=== PATIENT | male | born 1970 | race Caucasian/White ===

== ENCOUNTER 2018-07-02 15:46 | Outpatient (CLI) | payer BC, SELFPAY ==
--- NOTE | 2018-07-02 16:01 | DI.RAD_ITS ---
SYMPTOM/DIAGNOSIS: F/U KIDNEY STONES Z87.4 KUB: Comparison is made with 11/06/15. The kidneys are mainly obscured by overlying bowel gas and stool. There is a question of a small stone near the lower pole of the left kidney. Phleboliths are seen in the pelvis. No organomegaly is seen. IMPRESSION: Limited due to overlying stool and bowel gas. There is a question of a tiny stone of the left kidney.
== END 2018-07-02 16:06 ==
PROVIDERS: PCP Emergency Medicine; Visit Provider Nurse Practitioner Gerontology
DX: N20.0 Calculus of kidney (principal); Z87.442 Personal history of urinary calculi
CPT/HCPCS: 74018

== ENCOUNTER 2018-11-05 06:20 | Day surgery (SDC) | payer BC, SELFPAY ==
[2018-11-05 06:28] VITALS: BP 134/82; PULSE 68; RESP 16; TEMP 36; O2SAT 93
--- NOTE | 2018-11-05 06:30 | W.PM.HP.N ---
Date of service: 11/05/18 Time of Service: 06:30 Assessment and Plan (1) Family history of colon cancer: Current visit: No Status: Chronic (2) Encounter for screening colonoscopy: Current visit: Yes Status: Acute P\\ Colonoscopy under sedation Risks, benefits and complications have been reviewed. Complications include but are not limited to bleeding, pain, perforation, missed small lesion/polyp, sore throat, aspiration and adverse reaction to the medications. Questions were entertained and answered to their satisfaction and they wished to proceed. No guarantees were given or implied. History of Present Illness Chief Complaint: colon cancer screening and family history Narrative: 48 y/o male presents for colonoscopy screening pre-op. His last screening was in 2012, which was remarkable for single small polyp. He reports a family history of colon cancer in his paternal grandmother. He denies any changes in bowel habits including bloody or black tarry stools, abdominal pain, diarrhea or constipation. He denies constitutional symptoms. He reports use of marijuana once a week. Denies use of other recreational or illegal drugs. He denies chest pain, palpitations, dyspnea or dyspnea with exertion. He exercises regularly; skiing and mountain biking. He denies prior history or family history of adverse reactions or complications with anesthesia. 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 His last seizure was over 20 years ago. He had a respiratory infection in September and has gotten over that now. No cough or fevers. No SOB Review of Systems Constitutional Denies fever(s) Cardiovascular Denies dyspnea Respiratory Denies cough, Denies dyspnea and Denies wheezing Allergic/Immunologic Denies wheezing [facility] Medical History Family history of colon cancer (Chronic) Smoker (Acute) Polyp of colon (Acute 04/23/13) Family history of GI malignancy (Acute) Calcium oxalate stone in urine (Acute 12/11/15) Ureteral stone (Acute) Surgical History Cystoscopy Stent placement Tonsillectomy and adenoidectomy Social History Smoking and Tabacco status: Former Tobacco Use alcohol intake: current alcohol intake frequency: a few times a week Alcohol type: beer substance use type: marijuana Meds Home Medications Medication Instructions Recorded Confirmed Type azithromycin 250 mg tablet See Rx Instructions PO .COMPLEX #6 09/28/18 11/05/18 Rx tab Allergies Allergy/AdvReac Type Severity Reaction Status Date / Time No Known Allergies Allergy Verified 11/05/18 06:27 Exam Resp Effort & Inspection: normal respiratory effort Auscultation: clear to auscultation bilaterally Cardio Rate: regular rate Rhythm: regular rhythm Heart Sounds: no gallops, no murmurs and no rubs
--- NOTE | 2018-11-05 06:33 | W.COLOREPORT ---
Date of service: 11/05/18 Time of Service: 07:43 Colonoscopy Report Date of procedure: 11/05/18 Pre-op diagnosis general: Family history and screening Post-op diagnosis procedure note: other (family history and polyps) Procedure: Colonoscopy with polypectomy by cold forceps Surgeon: Hannah Cisneros Anesthesia proc note operative: MAC ([place], NELIDA/ ASA 2) Estimated blood loss (mL): 3 Pathology: other (terminal ileum polyp, cecal polyp and transverse colon polyp) Complications: None Disposition: same day Indications: Mr. Parr is a pleasant 48 year old male who was seen in the office for a screening colonoscopy. He also has a family history of colon cancer. Risks, benefits and complications have been reviewed. Complications include but are not limited to bleeding, pain, perforation, missed small lesion/polyp, sore throat, aspiration and adverse reaction to the medications. Questions were entertained and answered to their satisfaction and they wished to proceed. No guarantees were given or implied. Prep: Miralax/Dulcolax Procedure Start Time: :43 Procedure End Time: 08:09 Retraction Time: 21 minutes Findings: small polyps one small diverticulum in the ascending colon Procedure Description: After informed consent was obtained the patient was taken to the procedure room and placed in a left decubitous position. Monitors were applied and a time out was done. The patients name, date of , procedure, allergies to medications and metal in their body was reviewed. The patient was then sedated. Once sedated and comfortable a rectal exam was done. External exam was normal. Internal exam revealed a normal sphincter tone and no palpable masses. The prostate felt smooth. The scope was then introduced and retro-flexed. No internal hemorrhoids were identified. The scope was then advanced to the cecum without difficulty. The TI and appendiceal orifice were identified. The prep was adequate. The scope was then slowly retracted over 21 minutes back into the rectum. Polyps were removed in the terminal ileum, cecum and transverse colon with cold forceps. One solitary small diverticulum was noted in the ascending colon. The scope was removed and the patient was woken up and taken back to Same day surgery in stable condition. The patient tolerated the procedure well and there were no immediate complications. Follow up: The patient should follow up in 5 years unless they develop changes in bowel habits or other new gastrointestinal complaints.
--- NOTE | 2018-11-05 06:37 | W.PM.DSUDISC ---
Discharge Plan Disposition Patient Disposition: HOME Condition: Good Discharge Details Reason For Visit: Family history/Screening colonoscopy Attending Provider: Hannah Cisneros Primary Care Provider: Tommy Rodriguez Home Meds and New Rx's Prescriptions: Continued azithromycin [Zithromax Z-Chris] 250 mg tablet See Rx Instructions PO .COMPLEX Qty: 6 RF: 0 Discharge Instructions Instructions: Colonoscopy (DC), Colorectal Polyps (DC) Additional Instructions: Findings: 3 small polyps Follow up: 5 years Please call if you develop: fevers >101.5 Nausea or Vomiting Abdominal pain that is not transient DAY SURGERY UNIT POST COLONOSCOPY INSTRUCTIONS 1. Because there will be medication in your system for the next 24 hours, you may feel a little sleepy. Your coordination will be affected. Therefore: a. Do not drive or operate dangerous equipment for 24 hours. b. Do not drink alcohol beverages for 24 hours (not even beer). c. Plan to go home and rest for the day. 2. Generally there are no restrictions on your activity after a day or so has gone by, but you may feel a bit fatigued for a few days. 3 After you arrive home you may have a light meal and return to a normal diet as you can tolerate it without feeling sick to your stomach. 4. After surgery, you may feel pain or discomfort. This should be only transient, but if it persists please contact your doctor. 5. If there are any questions regarding the findings of your procedure, please feel free to contact your doctor. 6. If you are unable to contact your doctor with a problem, contact the hospital at [phone]. 7. Continue all your regular medications unless directed otherwise. I understand the above instructions and have no questions. Signature of Patient or Responsible Adult Escort Date/Time Name of Responsible Adult Escort Signature of Nurse Date/Time Activity:: Activity as Tolerated Diet:: As Tolerated Discharge Orders Discharge Orders: Discharge Order (Routine); Ordered 11/05/18 Ordered By: Hannah Cisneros DS: Diagnosis Discharge Diagnosis (1) Family history of colon cancer: Status: Chronic (2) Encounter for screening colonoscopy: Status: Acute
[2018-11-05] MEDS: Lactated Ringers 1,000 ML 80 ML IV (07:01)
--- NOTE | 2018-11-05 07:49 | BOWEL_PTH ---
PATIENT: Freddy Parr LOC: [facility] U#:[id number] AGE/SX: 48/M ROOM: RE11/05/[address]: Hannah Cisneros MD : 1970 BED: DIS: 11/05/2018 SPEC #: [id number] RECD: 11/05/18 12:42 STATUS: BRENDA RE #: [id number] ISHA: 11/05/18 07:[address]: Hannah Cisneros DEPT: Surgical Specimen RECD BY: Yanna Adkins ENTERED: 11/05/18 12:43 SP TYPE: Bowel OTHR DR: Tommy Rodriguez DO Tissues: 1 - BIOPSY BOWEL 2 - BIOPSY BOWEL 3 - BIOPSY BOWEL Procedures: GROSS AND MICRO LEVEL 4 Comments: [id number]
[2018-11-05 08:39] VITALS: BP 114/66; PULSE 64; RESP 16; TEMP 36.1; O2SAT 92
== END 2018-11-05 08:57 | disposition home or self-care (01) ==
PROVIDERS: PCP Emergency Medicine; Visit Provider Surgery
PROC: 0DJD8ZZ Inspection of Lower Intestinal Tract, Via Natural or Artificial Opening Endoscopic (ICD-10-PCS; CPT 45378; principal; 2018-11-05 07:30)
DX: Z12.11 Encounter for screening for malignant neoplasm of colon (principal); K63.5 Polyp of colon; K57.30 Diverticulosis of large intestine without perforation or abscess without bleeding; Z80.0 Family history of malignant neoplasm of digestive organs
CPT/HCPCS: 45380; 88305; NC

== ENCOUNTER 2020-05-19 15:10 | Outpatient (REF) | payer BC, SELFPAY ==
[2020-05-19 18:12] LABS: Calculated LDL 166 mg/dL (<100); Cholesterol 258 mg/dL (<200); HDL Cholesterol 61 mg/dL (40-60); Triglyceride 159 mg/dL (<150)
== END 2020-05-19 15:30 ==
LOC: LBN 15:10
PROVIDERS: PCP Emergency Medicine; Visit Provider Emergency Medicine
DX: Z00.00 Encounter for general adult medical examination without abnormal findings (principal); Z13.220 Encounter for screening for lipoid disorders
CPT/HCPCS: 80061

== ENCOUNTER 2021-05-26 03:12 | Outpatient (CLI) | payer BC, SELFPAY ==
[2021-05-26 16:37] LABS: Calculated LDL 148 mg/dL (<100); Cholesterol 227 mg/dL (<200); HDL Cholesterol 51 mg/dL (40-60); Triglyceride 140 mg/dL (<150)
[2021-05-26 22:02] LABS: PSA, Screening 0.5 ng/mL (0.0-2.5)
== END 2021-05-26 03:13 | disposition home or self-care (01) ==
LOC: LBO 03:12
PROVIDERS: PCP Emergency Medicine; Visit Provider Emergency Medicine
DX: E78.5 Hyperlipidemia, unspecified; N40.0 Benign prostatic hyperplasia without lower urinary tract symptoms; Z12.5 Encounter for screening for malignant neoplasm of prostate
CPT/HCPCS: 36415; 80061; 84153

== ENCOUNTER 2023-08-07 03:32 | Outpatient (CLI) | payer BC, SELFPAY | END 2023-08-07 03:33 | disposition home or self-care (01) | LOC: LBO 03:32 | PROVIDERS: PCP Nurse Practitioner Family; Visit Provider Nurse Practitioner Family | DX: N40.0 Benign prostatic hyperplasia without lower urinary tract symptoms (principal); E78.5 Hyperlipidemia, unspecified | CPT/HCPCS: 80061; 84153 ==

== ENCOUNTER → 2023-08-09 01:30 | Outpatient (CLI) | payer BC, SELFPAY ==
[2023-08-07 07:49] LABS: Calculated LDL 185 mg/dL (<100); Cholesterol 260 mg/dL (<200); HDL Cholesterol 57 mg/dL (40-60); Triglyceride 94 mg/dL (<150)
[2023-08-07 19:05] LABS: PSA, Screening 0.5 ng/mL (<=3.5)
--- NOTE | 2023-08-09 08:30 | DI.CTLCSR_ITS ---
Exam(s) CT CHEST LUNG CANCER SCREEN EXAM: CT CHEST LUNG CANCER SCREEN CLINICAL HISTORY: Screening for lung cancer, former smoker, Z87.891 TECHNIQUE: Imaging Protocol: Axial computed tomography images with coronal and sagittal reformatted images were created and reviewed COMPARISON: No exams were available for comparison FINDINGS: Tracheobronchial tree: Patent where visualized. Pulmonary parenchyma: No consolidation or dominant measurable mass. No architectural distortion. Lung Nodules: None. Mediastinum and Em: No dominant adenopathy or fluid collection. The esophagus is unremarkable. Thyroid gland: Unremarkable. Lymph nodes: Unremarkable. Pleura: No effusion or pneumothorax. Heart: The heart is not dilated. Coronary artery calcifications are present. No pericardial effusion . Aorta: Thoracic aorta non-dilated. Upper abdomen: Unremarkable. Soft Tissues: Unremarkable. Bones: Within normal limits. IMPRESSION: No pulmonary nodule. Lung RADS Cat 1 - Negative: No nodules and definitely benign nodules Lung-RADS 1.0 CATEGORIES: Category 0 - Prior chest CT exam(s) being located for comparison. Category 1 - Annual screening in 12 months. No nodules or definitely benign nodules. Category 2 - Annual screening in 12 months. Benign appearance. Nodules with low likelihood of becomin g active cancer. Category 3 - 6-month follow-up. Probably benign. Short-term follow-up suggested. Nodules with low lik elihood of becoming active cancer. Category 4A - 3-month follow-up and CT/PET if >8 mm in size. Suspicious finding. Findings which requi re additional testing. Category 4B - Findings which require additional testing and tissue sampling. Suspicious finding. Category 4X - Category 3 or 4 nodules with additional features or imaging findings that increases the suspicion of malignancy. Modifier S- Potentially clinically significant finding. (Non lung cancer) RADIATION DOSE DELIVERED: Total DLP Total DLP DATA REPOSITORY: All CT scans at this facility are submitted to the National Radiology Data Registry (NRDR) Dose Index Registry (DIR) with the [employer] [place] [employer] (ACR). RADIATION OPTIMIZATION: All CT scans at this facility use at least one of these dose optimization te chniques: automated exposure control; mA and/or kV adjustment per patient size (includes targeted exa ms where dose is matched to clinical indication); or iterative reconstruction.
== END ==
PROVIDERS: PCP Nurse Practitioner Family; Visit Provider Nurse Practitioner Family
DX: E78.5 Hyperlipidemia, unspecified (principal); N40.0 Benign prostatic hyperplasia without lower urinary tract symptoms; Z87.891 Personal history of nicotine dependence
CPT/HCPCS: 36415; 71271

== ENCOUNTER 2024-03-05 13:00 | Emergency (ER) | payer BC, SELFPAY ==
[2024-03-05 13:05] VITALS: BP 150/60; PULSE 77; RESP 18; TEMP 36.9; O2SAT 98
--- NOTE | 2024-03-05 14:10 | W.ED.GENAD ---
Discharge Plan Disposition Patient Disposition: Home Discharge Details Clinical Impression: Contact dermatitis Primary Care Provider: Yovani Walker ED Provider: See Cespedes Home Meds and New Rx's Prescriptions: New prednisone 10 mg tablet 10 mg PO DIRECTED Qty: 42 0RF Rx Instructions: Day 1 take 6 tablets Day 2 take 6 tablets Day 3 take 5 tablets Day 4 take 5 tablets Day 5 take 4 tablets Day 6 take 4 tablets Day 7 take 3 tablets Day 8 take 3 tablets Day 9 take 2 tablets Day 10 take 2 tablets Day 11 take 1 tablet Day 12 take 1 tablet cetirizine 10 mg tablet 10 mg PO DAILY PRNQty: 7 0RF Discharge Instructions Instructions: Contact dermatitis Additional Instructions: You are seen in the emergency department for your rash. Please take these steroid tablets as directed for the next 12 days. Please return to the emergency department as we discussed if you develop fevers worsening rash or develop any difficulty breathing. Otherwise please follow-up with your primary care provider as needed next week. Discharge Data Discharge Date/Time-TO BE ENTERED AT DEPARTURE: 03/05/24 14:26 HPI General Date/Time Provider Initiated Documentation: 03/05/24 13:27. HPI Narrative: MDM This is an overall very well-appearing normothermic and not tachycardic 54-year-old male with left medial ankle vesicular rash most consistent with contact dermatitis likely secondary to urashiols given vesiculobullous nature. No pain out of proportion to suggest necrotizing soft tissue infection. No fevers to suggest varicella or smallpox. Patient quite well-appearing so I am not concerned for DIC. No intraoral lesions to suggest ehmd-qmni-npb-mouth disease. No significant bullae to suggest Biggs-Dany's nor TEN. Based on the patient's age my suspicion for bullous pemphigoid is low. No reported schreiber. No fluctuance to suggest abscess. No surrounding erythema to suggest cellulitis. Good range of motion in left ankle so I am not concerned for septic joint. I prescribed patient with a 12-day steroid taper. I also prescribed him cetirizine given that there is a component of pruritus. I advised discontinue frcf-jeh-zkpmlrj topical treatments as did not want him to develop an allergic reaction or an additional contact dermatitis. He and I discussed return indications including any spreading rash any fevers or any difficulty breathing. Otherwise I advised PCP follow-up as needed. Patient understood his return indications and was discharged with and empiric trial of expectant outpatient management. HPI This is a previously healthy 54-year-old male not on any home medications arrived to the emergency department via private vehicle in setting of a rash that he noticed approximately 1 week ago on the medial aspect of his left ankle. Patient reports that 1 week ago he got out of his car on the roadside wearing sandals. He believes that he made contact with a poison parsnip. He subsequently noticed a rash. He is attempted treatment at home with calamine lotions. He says the range rash is itchy and uncomfortable. He also attempted treatment with spsr-rzs-zumgddo topical astringent called [place]. He denies fevers. He denies history of diabetes. He said no change in the range of motion in his left ankle. He wants to know if he can go biking this afternoon. Exam General: Well-appearing in no acute distress speaking in complete sentences. Head: Normocephalic, atraumatic. Eye: Extraocular eye movements intact. No conjunctival injection. No scleral icterus. Ear, nose, mouth, throat: Grossly normal inspection. Normal voice, handling secretions normally. Neck: Trachea midline. Cardiovascular: Well-perfused distal extremities. Respiratory: Nonlabored respiration. Gastrointestinal: Nondistended abdomen. Musculoskeletal: No edema. Moving all 4 extremities spontaneously. Skin: On the medial aspect of the patient's left ankle there is an approximately 3 x 3 cm vesicular rash that is erythematous with some weeping. There are scattered erythematous papules on the medial aspect of the left foot and the distal and medial aspect of the left tib-fib as shown in the photo that follows: Neurologic: Alert and appropriate, no apparent acute deficits. Psychiatric: Mood and manner are appropriate. Grooming and personal hygiene are appropriate. Related Data Home Medications Medication Instructions Recorded Confirmed cetirizine 10 mg tablet 10 mg PO DAILY PRN #7 tabs 03/05/24 prednisone 10 mg tablet 10 mg PO DIRECTED #42 tabs 03/05/24 Previous Rx's Medication Instructions Recorded cetirizine 10 mg tablet 10 mg PO DAILY PRN #7 tabs 03/05/24 prednisone 10 mg tablet 10 mg PO DIRECTED #42 tabs 03/05/24 Allergies Allergy/AdvReac Type Severity Reaction Status Date / Time No Known Allergies Allergy Verified 06/12/23 14:59 General Stated Complaint: RashLesion MONI: 4 Course Vital Signs Vital signs: Vital Signs Temperature 36.9 C 03/05/24 13:05 Pulse 77 03/05/24 13:05 Respiratory Rate 18 03/05/24 13:05 Blood Pressure 150/60 H 03/05/24 13:05 Pulse Oximetry 98 03/05/24 13:05 Temperature 36.9 C 03/05/24 13:05 Pulse 77 03/05/24 13:05 Respiratory Rate 18 03/05/24 13:05 Blood Pressure 150/60 H 03/05/24 13:05 Pulse Oximetry 98 03/05/24 13:05 Pain Level 6 03/05/24 13:05 Medical Decision Making Quality:SDOH Health Related Social Needs: No Data to Display PFSH All Active Problems (Updated 03/05/24 @ 14:20 by See Cespedes MD) Contact dermatitis (Acute) Former smoker (Acute) Trigger finger (Acute) left ring finger BPH (benign prostatic hyperplasia) (Chronic) Hyperlipidemia (Acute) Encounter for screening colonoscopy (Chronic) negative 10/30 Family history of colon cancer (Chronic) paternal GM Polyp of colon (Chronic 04/23/13) Medical History (Updated 03/05/24 @ 14:20 by See Cespedes MD) Smoker Quit in 2003 Calcium oxalate stone in urine (12/11/15) Ureteral stone Surgical History (Updated 06/09/22 @ 14:17 by Yovani Walker NP) Status post cystoscopy (11/06/15) Status post tonsillectomy and adenoidectomy (11/19/15) H/O colonoscopy (~10/2018) Tonsillectomy and adenoidectomy Stent placement 11/06/15; DR. LOAIZA RIGHT URETERAL Cystoscopy 11/06/15; DR. LOAIZA Family History (Updated 06/14/22 @ 12:51 by Andria Garvin) Mother No problems noted. Father Depression Stroke Dementia Brother Alcohol abuse Son No problems noted. Social History (Updated 06/14/23 @ 16:17 by Ness Cardoza) Smoking/Tobacco Use Status: Former Tobacco Use tobacco type: cigarettes Quit Date: 06/14/22 Tobacco: How many years used: 15 Smokeless tobacco user: other Second Hand Exposure: Yes Smoking risk assessment performed?: Yes Alcohol Intake: current Alcohol Intake frequency: a few times a week Alcohol type: beer and hard liquor Drug use: Occasionally Substance use type: marijuana Adopted: No Caregiver/Support person: No Household members: spouse and children Housing: house Number of Children: 1 Education Level: master's degree Do you need help understanding health information?: Rarely Pets and animals: Yes Pets and animals: dog(s) Sexually active: Yes Do you think of yourself as: straight/heterosexual Current gender identity: male What is your relationship status?: How often do you talk on the phone with friends or family?: three or more times per week How often do you get together with friends or relatives?: twice per week How often do you attend mandaeism or adventist services?: decline to answer Do you belong to any clubs or organized social groups?: yes Panel score (0-1 are the most socially isolated patients): 3 What type of physical activity do you participate in: bicycling Duration: 45-60 minutes/day Frequency: 3-4 times per week Catalina/Moravian: None Special catalina needs: No Seatbelt use: always Helmet use: Yes Helmet use: always Drive intox or ride w/intox bicycle taxi driver: No Do you feel safe at home: Yes Do you feel safe in your relationship?: Yes Victim of physical abuse: No Victim of emotional abuse: No Victim of sexual abuse: No
== END 2024-03-05 14:26 | disposition home or self-care (01) ==
LOC: ER 14:33
PROVIDERS: Emergency Provider Emergency Medicine; PCP Nurse Practitioner Family
DX: L23.7 Allergic contact dermatitis due to plants, except food (principal)
CPT/HCPCS: 99283; 99284

== ENCOUNTER → 2024-04-08 12:33 | Outpatient (CLI) | payer BC, SELFPAY ==
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
== END ==
PROVIDERS: PCP Nurse Practitioner Family; Visit Provider Nurse Practitioner Family
DX: M25.532 Pain in left wrist; S69.82XA Other specified injuries of left wrist, hand and finger(s), initial encounter; S52.572A Other intraarticular fracture of lower end of left radius, initial encounter for closed fracture; X58.XXXA Exposure to other specified factors, initial encounter
CPT/HCPCS: 73110

== ENCOUNTER 2024-05-06 22:28 | Outpatient (CLI) | payer BC, SELFPAY ==
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
== END 2024-05-06 22:29 | disposition home or self-care (01) ==
LOC: DIORS 22:30
PROVIDERS: PCP Nurse Practitioner Family; Visit Provider Student in an Organized Health Care Education/Training Program
DX: S52.572D Other intraarticular fracture of lower end of left radius, subsequent encounter for closed fracture with routine healing (principal); X58.XXXD Exposure to other specified factors, subsequent encounter
CPT/HCPCS: 73110

== ENCOUNTER 2024-06-03 15:46 | Outpatient (CLI) | payer BC, SELFPAY ==
--- NOTE | 2024-06-03 15:00 | DI.RAD_ITS ---
Exam(s) XR WRIST LT COMPLETE EXAM: XR WRIST LT COMPLETE CLINICAL HISTORY: F/U L DISTAL RAD FX. TECHNIQUE: 2D digital imaging was performed. COMPARISON: CR XR WRIST LT COMPLETE from 05/06/2024 FINDINGS: 3 views Distal radius fracture again noted. Fracture line still visible and is again noted to involve the ra diocarpal joint, unchanged. There is no significant dorsal angulation. No significant ulnar varianc e. No evidence of acute fracture of the ulnar styloid. Calcific density distal to the ulnar styloid is again noted and is again noted be corticated and therefore not have recent fracture fragment. No evidence of scaphoid fracture. IMPRESSION: Distal radius fracture site appears relatively stable. Fracture line still faintly visible and again noted to involve the radiocarpal joint surface. DATA REPOSITORY: RADIATION DOSE DELIVERED:
== END 2024-06-03 15:47 | disposition home or self-care (01) ==
LOC: DIORS 15:47
PROVIDERS: PCP Nurse Practitioner Family; Referring Provider Nurse Practitioner Family; Visit Provider Physician Assistant
DX: S52.572D Other intraarticular fracture of lower end of left radius, subsequent encounter for closed fracture with routine healing (principal); X58.XXXD Exposure to other specified factors, subsequent encounter
CPT/HCPCS: 73110

== ENCOUNTER 2024-07-01 15:47 | Outpatient (CLI) | payer BC, SELFPAY ==
--- NOTE | 2024-07-01 15:15 | DI.RAD_ITS ---
Exam(s) XR WRIST LT COMPLETE EXAM: XR WRIST LT COMPLETE CLINICAL HISTORY: F/U L DISTAL RAD FX. TECHNIQUE: 2D digital imaging was performed of the left wrist. Four images were obtained. Delete P A, oblique and lateral views were obtained. COMPARISON: CR XR WRIST LT COMPLETE from 06/03/2024 FINDINGS: BONES: There is stable alignment of the distal left radial fracture. The fracture line is less well visualized. No new fractures appreciated. No bony destructive lesion is seen. JOINTS: The carpal bones are normally aligned. SOFT TISSUE: Normal. IMPRESSION: Stable alignment of the distal healing left radial fracture. DATA REPOSITORY: RADIATION DOSE DELIVERED:
== END 2024-07-01 15:48 | disposition home or self-care (01) ==
LOC: DIORS 15:47
PROVIDERS: PCP Nurse Practitioner Family; Visit Provider Student in an Organized Health Care Education/Training Program
DX: S52.572D Other intraarticular fracture of lower end of left radius, subsequent encounter for closed fracture with routine healing (principal); X58.XXXD Exposure to other specified factors, subsequent encounter
CPT/HCPCS: 73110

== ENCOUNTER 2024-09-09 06:15 | Day surgery (SDC) | payer BC, SELFPAY ==
--- NOTE | 2024-09-08 11:44 | W.PM.DSUDISC ---
Date of service: 09/08/24 Discharge Plan Disposition Patient Disposition: Home Condition: Good Discharge Details Reason For Visit: Screening colonoscopy Attending Provider: Dimas Medel Primary Care Provider: Yovani Walker Home Meds and New Rx's Prescriptions: Discontinued polyethylene glycol 3350 17 gram/dose powder 238 g PO ONCE Qty: 238 0RF Rx Instructions: take per colonoscopy instructions bisacodyl [Dulcolax (bisacodyl)] 5 mg tablet,delayed release (DR/EC) 5 mg PO ONCE Qty: 4 0RF Rx Instructions: take per colonoscopy instructions Discharge Instructions Instructions: Colon polyps, Diverticulosis Additional Instructions: Karthikeyan, it was very nice seeing you again today, and I hope you are comfortable through the procedure and that you feel great this afternoon. Everything went very smoothly. Your prep was outstanding and I could see everything fine. I did find removed just 1 small bit of tissue that might be a polyp. However, this is quite small, and to the naked eye, it does not at all appear worrisome. Regardless, based on your history, I did remove this today, and I will send it off to the pathologist for their evaluation. That information will be used to help guide the timing of your next colonoscopy. Incidentally, he also have a little bit of diverticulosis. I cannot recall if we discussed this in the office or not. Diverticula are little weak spots in the muscular part of the colon wall that caused the inside lining to pooch or pocket outwards a bit. These can get infected or inflamed during episodes that we refer to as diverticulitis. If this happens, it is typically experienced as fairly sharp left-sided lower abdominal pain. I find diverticula in most patients, and many of them have no symptoms at all. I attached a little bit of information here about diverticular disease as well as colon polyps. Once my office has the results of the polypectomy report, we will be in touch with any other recommendations. If you need anything in the meantime, please do not hesitate to ask. 1. If tolerated, consume a soft, low fiber diet for 1-2 days. 2[address] Do not drive, drink alcohol, operate machinery, make critical decisions, or do activities that require coordination or balance for 24 hours. 3. Because air was put into your colon during the procedure, expelling air from your rectum (passing gas or farting) is normal. 4. You may not have a bowel movement for 1-3 days because of the colonoscopy prep. This is normal. 5. Go directly to the emergency room if you notice any of the following: Develop chills (warm to touch), or if you have a thermometer and your temperature is above 101 Difficulty breathing or difficultly swallowing Persistent vomiting Severe abdominal pain, other than gas cramps Severe chest pain Black, tarry stools Any bleeding ? exceeding one tablespoon 6. Call your physician if the site where your intravenous was started becomes red, swollen, painful, and warm to touch. 7. Your physician has reviewed your pre-procedure medications. Please continue to take those medications as previously ordered. You will be given specific information/education regarding any changes to your medications before leaving. Activity:: Activity as Tolerated Diet:: As Tolerated Discharge Orders Discharge Orders: Discharge Order (Routine); Ordered 09/08/24 Ordered By: Dimas Medel DS: Diagnosis Discharge Diagnosis (1) Encounter for screening colonoscopy: Status: Chronic Asessment and Plan: Follow-up on polypectomy results
--- NOTE | 2024-09-08 11:45 | COLE_ITS ---
Date of service: 09/09/24 Time of Service: 07:56 Colonoscopy Report Date of procedure: 09/09/24 Pre-op diagnosis general: Screening colonoscopy Post-op diagnosis procedure note: other (Diverticulosis, colon polyp) Procedure: Colonoscopy with polypectomy Surgeon: Dimas Medel Anesthesia Type: General:No Airway Estimated blood loss (mL): 5 Pathology: other (0.25 cm flat polyp at 30 cm from the anus) Complications: None Disposition: same day Indications: Karthikeyan is a 54-year-old male who is here for his next screening colonoscopy Prep: Miralax/Dulcolax Procedure Start Time: 07:34 Procedure End Time: 07:51 Retraction Time: 13 Findings: Sigmoid diverticulosis, 0.25 cm flat polyp at 30 cm from the anus Procedure Description: After the induction of anesthesia, and with the patient in left lateral decubitus position, I began by performing an external anorectal exam.? Perineum and skin were normal, as was the anal verge.? There was no evidence of external hemorrhoids.? Next, I performed a digital rectal exam.? I did not appreciate any abnormal findings.? Next, I advanced a colonoscope into the rectal vault.? I performed retroflexion.? This appeared normal.? Using insufflation, I then advanced the colonoscope beyond the rectal folds and into the sigmoid colon before advancing towards the cecum.? The quality of the prep was outstanding.? The scope was noted to be in the cecum by identification of the ileocecal valve and appendiceal orifice.? I then began withdrawing the colonoscope using repeated irrigation as necessary for full evaluation of the colonic mucosa. There is sigmoid diverticulosis. Around 30 centimeters from the anus, there was a 0.25 cm flat polyp. Narrowband imaging was used. Clinical features seem consistent with polypoid mucosa, or perhaps a hyperplastic polyp. Based on the family history, however, I did perform cold forceps polypectomy here with minimal bleeding. Once the scope was withdrawn to the level of the rectum, great care was taken to examine portions of the rectal folds.? Finally, the scope was withdrawn and the patient was brought to the same-day surgery recovery unit as the anesthetic wore off. ?The findings and instructions were shared with the patient prior to discharge. [place] Bowel Prep [place] Bowel Prep Right Colon: 3 Left Colon: 3 Transverse Colon: 3 Total Score: 9
[2024-09-09 06:29] VITALS: BP 125/90; PULSE 80; RESP 16; TEMP 36.2; O2SAT 93
[2024-09-09] MEDS: Lactated Ringers 1,000 ML 80 ML IV (07:24)
--- NOTE | 2024-09-09 07:27 | W.ANESPRE ---
General Info Date of Service Date Performed: 09/09/24 Height: 5 ft 10 in Weight: 104.8 kg Body Mass Index (BMI): 33.1 Surgical Procedure: Operation Date: 09/09/24 07:35 Proposed Procedure Side Surgeon p Tiffany Medel MD Meds Allergies and Home Medications Allergies Allergy/AdvReac Type Severity Reaction Status Date / Time No Known Allergies Allergy Verified 09/09/24 06:27 Current Visit Medications: Current Medications Generic Name Dose Route Start Last Admin Trade Name Freq PRN Reason Stop Dose Admin Ringer's Solution 1,000 mls @ 80 mls/hr 09/09/24 06:55 09/09/24 07:24 IV 10/09/24 06:54 80 mls/hr INFUSION BETZAIDA Administration IV Miscellaneous Supplies 1 each 09/09/24 06:00 Iv Access IV 09/09/24 23:59 DIRECTED BETZAIDA Ondansetron HCl 4 mg 09/08/24 11:43 Ondansetron 4 Mg/2 Ml Vial IVP 10/08/24 11:42 Q4H PRN PRN Nausea / Vomiting Sodium Chloride 0 ml 09/09/24 06:00 Normal Saline Flush 10 Ml Syr IV 09/09/24 23:59 PRN PRN Sodium Chloride 0 ml 09/09/24 06:00 Normal Saline 10 Ml Vial IJ 09/09/24 23:59 DIRECTED PRN Sterile Water 0 ml 09/09/24 06:00 Water,Injection,Sterile 10 Ml Vial IJ 09/09/24 23:59 DIRECTED PRN PFSH Active Problems Active Problems: Problem Status Onset Code Distal radius fracture, left Acute 04/06/24 S52.502A Left wrist injury Acute S69.92XA Former smoker Acute Z87.891 Trigger finger Acute M65.30 BPH (benign prostatic hyperplasia) Chronic N40.0 Hyperlipidemia Acute E78.5 Encounter for screening colonoscopy Chronic Z12.11 Family history of colon cancer Chronic Z80.0 Polyp of colon Chronic 04/23/13 K63.5 Medical History Medical History Smoker Quit in 2003 Calcium oxalate stone in urine (12/11/15) Ureteral stone Surgical History Surgical History Status post cystoscopy (11/06/15) Status post tonsillectomy and adenoidectomy (11/19/15) H/O colonoscopy (~10/2018) Tonsillectomy and adenoidectomy Stent placement 11/06/15; DR. LOAIZA RIGHT URETERAL Cystoscopy 11/06/15; DR. LOAIZA Tobacco Smoking/Tobacco Use Status: Former Tobacco Use Smokeless tobacco user: other Passive smoking exposure: Yes Second hand exposure: Yes Alcohol Alcohol Intake: current Alcohol intake frequency: a few times a week Alcohol type: beer and hard liquor Substance Use Substance use: Occasionally Substance use type: marijuana Vital Signs and Lab Results Vital Signs Most Recent Vital Signs in EMR: Most Recent Vital Signs Temp Pulse Resp BP Pulse Ox 36.2 C L 80 16 125/90 93 09/09/24 06:29 09/09/24 06:29 09/09/24 06:29 09/09/24 06:29 09/09/24 06:29 Lab Results Blood Type / Crossmatch: No Data to Display Complete Blood Count: No Data to Display Complete Metabolic Panel: No Data to Display Liver Function Panel: No Data to Display Coagulation Panel: No Data to Display Cardiac Panel: No Data to Display Arterial Blood Gas: No Data to Display Venous Blood Gas: No Data to Display Pancreas Panel: No Data to Display Thyroid Panel: No Data to Display Infectious Disease: No Data to Display Blood Cultures: No Data to Display Toxicology Panel: No Data to Display Anesthesia Assessment and Plan Anesthesia History Personal History: No History of Anesthesia Complications Family History: No Family History of Anesthesia Complications Exercise Tolerance Exercise Tolerance: Metabolic Equivalents>4 Pertinent Negatives Pertinent Negatives: No Symptoms of GERD Cardiac & Pulmonary Exam Cardiac Exam: Normal S1/S2 Heart Sounds Pulmonary Exam: Clear Bilateral Breath Sounds Implantable Cardiac Device Does patient have a Pacemaker or an ICD?: No Airway Exam Known Difficult Airway: No Mallampati Class: 2 Mouth Opening: Normal (> 3cm) Thyromental Distance: Greater than 3 cm Neck Range of Motion: Full ROM Neck Circumference: Normal Teeth Condition: Normal Dentition ASA Classification ASA Score: ASA 2 Emergency Case?: No NPO Status NPO Status: NPO Clears >2 hours, Solids >8 hours Anesthesia Plan Resuscitation Status: Full Code Anesthesia Technique: General Anesthesia Airway Planned: Natural Airway Monitors Used: Standard Monitors
[2024-09-09 07:28] VITALS: BMI 33.1
--- NOTE | 2024-09-09 07:47 | BOWEL_PTH ---
PATIENT: Freddy Parr LOC: [facility] U#:[id number] AGE/SX: 54/M ROOM: RE09/09/[address]: Dimas Medel MD : 1970 BED: DIS: 09/09/2024 SPEC #: [id number] RECD: 09/09/24 12:51 STATUS: BRENDA RE #: [id number] ISHA: 09/09/24 07:[address]: Dimas Medel DEPT: Surgical Specimen RECD BY: Yanna Adkins ENTERED: 09/09/24 12:52 SP TYPE: Bowel OTHR DR: Yovani Walker, DAMARIS Tissues: 1 - BIOPSY BOWEL Procedures: GROSS AND MICRO LEVEL 4 Comments: [id number]
[2024-09-09 07:57] VITALS: BP 103/85; PULSE 75; RESP 18; TEMP 36.6; O2SAT 93
[2024-09-09 08:25] VITALS: BP 99/65; PULSE 72; RESP 18; TEMP 36.5; O2SAT 93
--- NOTE | 2024-09-09 13:24 | W.ANESPOSTOP ---
Postoperative Evaluation Date, Time and Location Date Performed: 09/09/24 Time Performed: 13:24 Patient Location: Day Surgery Unit Vital Signs Most Recent Imported Vital Signs: Most Recent Vital Signs Temp Pulse Resp BP Pulse Ox 36.5 C 72 18 99/65 L 93 09/09/24 08:25 09/09/24 08:25 09/09/24 08:25 09/09/24 08:25 09/09/24 08:25 Pain Score Most Recent Pain Score: Most Recent Pain Score Pain Level 0 09/09/24 08:25 Assessment Mental Status: Awake (Alert & Oriented to Patient Baseline) Airway and Respiratory Function: Patent airway with normal (patient baseline) respiratory exam Cardiovascular Function: Hemodynamically Stable Hydration Status: Adequately Hydrated Nausea & Vomiting: No Nausea or Vomiting Pain: Pt. Denies Any Pain Peripheral Nerve Block: Patient did not receive a nerve block
== END 2024-09-09 09:00 | disposition home or self-care (01) ==
LOC: SUR 06:15
PROVIDERS: PCP Nurse Practitioner Family; Visit Provider Surgery
PROC: 0DJD8ZZ Inspection of Lower Intestinal Tract, Via Natural or Artificial Opening Endoscopic (ICD-10-PCS; CPT 45378; principal; 2024-09-09 07:30)
DX: Z12.11 Encounter for screening for malignant neoplasm of colon (principal); K63.5 Polyp of colon; K57.30 Diverticulosis of large intestine without perforation or abscess without bleeding
CPT/HCPCS: 45380; 88305; J2704

== ENCOUNTER 2024-09-20 00:56 | Outpatient (CLI) | payer OTHER, SELFPAY ==
[2024-09-20 12:29] LABS: Hemoglobin A1C 5.6 % (<5.7)
[2024-09-20 12:46] LABS: Calculated LDL 204 mg/dL (<100); Cholesterol 294 mg/dL (<200); HDL Cholesterol 66 mg/dL (40-60); Triglyceride 121 mg/dL (<150)
[2024-09-23 10:38] LABS: PSA, Screening 0.4 ng/mL (<=3.5)
== END 2024-09-20 00:57 | disposition home or self-care (01) ==
LOC: LBO 00:57
PROVIDERS: PCP Nurse Practitioner Family; Visit Provider Nurse Practitioner Family
DX: Z13.220 Encounter for screening for lipoid disorders (principal); Z13.1 Encounter for screening for diabetes mellitus; Z12.5 Encounter for screening for malignant neoplasm of prostate
CPT/HCPCS: 36415; 80061; 84153; 83036

== ENCOUNTER 2025-07-24 00:19 | Outpatient (CLI) | payer OTHER, SELFPAY ==
--- NOTE | 2025-07-25 08:32 | TELEFU_ITS ---
Date of service: 07/24/25 Time of Service: 03:30 Nutrition Note NOTE: Met with pt in-person for nutrition counseling. 55 yr old male pt with hyperlipidemia and essential hypertension referred by pcp for nutrition counseling. Pt states he eats 3 meals per day with snacks in between. For breakfast, he'll typically have oatmeal with peanut butter and berries or an egg sandwich with neftali. 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 He'll usually have what his makes for dinner, who he says is a great cook, like pot roast, chicken, potatoes, pork, etc. He used to be a vegetarian for a couple years. Says he's not a picky eater and likes most foods. Provided pt with a list of foods he can incorporate into his diet that would benefit his hypertension and bring down his LDL cholesterol like oats, garlic, hibiscus and matcha teas, edamame, 1 brazil nut/day, etc. Encouraged pt to continue with his mountain biking routines and to also incorporate some regular strength training. Pt is aware he can contact the dietitian if he has any questions or would like a follow-up appointment. Time Spent in Nutritional Counseling and Treatment: 30 mins
== END 2025-07-24 00:20 | disposition home or self-care (01) ==
LOC: DS 00:20
PROVIDERS: PCP Nurse Practitioner Family; Visit Provider Dietitian, Registered
DX: E78.5 Hyperlipidemia, unspecified (principal)
CPT/HCPCS: 00123; 97802